=== PATIENT | male | born 1950 | race Caucasian/White ===

== ENCOUNTER → 2021-04-29 09:47 | Outpatient (BNVA) | payer MEDICARE, OTHER, SELFPAY | PROVIDERS: PCP Internal Medicine; Visit Provider Urology | DX: Z13.89 Encounter for screening for other disorder (principal) | CPT/HCPCS: 99212 ==

== ENCOUNTER → 2021-06-30 09:12 | Outpatient (BNVA) | payer MEDICARE, OTHER, SELFPAY | PROVIDERS: Visit Provider Urology | DX: N48.6 Induration penis plastica (principal) | CPT/HCPCS: 99212 ==

== ENCOUNTER → 2021-12-31 08:27 | Outpatient (BNVA) | payer MEDICARE, OTHER, SELFPAY | PROVIDERS: PCP Internal Medicine; Visit Provider Urology | DX: Z13.89 Encounter for screening for other disorder (principal) | CPT/HCPCS: Q3014 ==

== ENCOUNTER → 2022-07-06 08:14 | Outpatient (BNVA) | payer MEDICARE, OTHER, SELFPAY | PROVIDERS: PCP Internal Medicine; Visit Provider Urology | DX: N52.9 Male erectile dysfunction, unspecified (principal); N48.6 Induration penis plastica | CPT/HCPCS: 99212 ==

== ENCOUNTER → 2023-03-14 08:53 | Outpatient (BNVA) | payer MEDICARE, OTHER, SELFPAY | PROVIDERS: PCP Internal Medicine; Visit Provider Urology | DX: N48.6 Induration penis plastica (principal); N52.9 Male erectile dysfunction, unspecified; Z79.899 Other long term (current) drug therapy | CPT/HCPCS: 99212 ==

== ENCOUNTER 2023-09-14 08:24 | Outpatient (AMB) | payer MEDICARE, OTHER, SELFPAY ==
--- NOTE | 2023-09-14 08:28 | MHC.OFFVIS ---
Intake Intake Visit Reasons: 6m/Testo(Set) Intake Note: Patient is Present for Follow Up Urology Medication: Sildenafil, Tadalafil Antibiotic Allergies: None Blood Thinners: None Allergies No Known Allergies Allergy (Verified 09/14/23 08:30) Medication List - Last Reconciled 09/14/23 by Cali Guzman MD omeprazole 40 mg PO DAILY pentoxifylline ER 400 mg PO BID 90 days sildenafil 100 mg PO DAILY PRN 30 days tadalafil (Cialis) 10 mg PO DAILY HPI HPI Comments History of Present Illness Details Jonathon is a very pleasant male. He is a patient of Dr Luong. He is seen for the following urologic conditions. - Peyronie's disease - erectile dysfunction Continue good response with Peyronie's management Continue good response to daily tadalafil Testosterone check 545 no indication for replacement Discussed use of penile constriction band for venous leak Erectile dysfunction Response to daily tadalafil with on demand sildenafil Tadalafil dosage 20 mg daily 12/28 T 554 PSA 2.9, 08/28 T 525 Peyronie's Disease: Improved curvature with combination medical therapy [place] no longer uncomfortable for partner The patient presents for followup up evaluation for penile disorder, - reports dorsal left curvature. Primary complaint is penile curvature, to the left, dorsally. The problem has been present Ongoing. At this time he experiences fully rigid erections sufficient for penetrative intercourse. [place] has is possible but painful - uncomfortable for partner. Prior management includes - antioxidant plus vacuum device Associated conditions history of penile trauma No CAD No diabetes No erectile dysfunction No hypertension No peripheral vascular disease No Investigation results testosterone 08/27 550 PFSH Medical History Weak urinary stream Bladder outlet obstruction Peyronie's disease Surgical History H/O esophagectomy Review of Systems Const Denies chills and Denies fever(s) Card Reports no additional complaints and Denies syncope Resp Denies cough GI Denies abdominal pain and Denies heartburn Reports as per HPI and Denies change in libido Neuro Denies syncope Psych Denies change in libido Endo Denies change in libido Physical Exam Const General: cooperative, healthy appearing, comfortable and no acute distress Orientation/consciousness: patient oriented x3 HEENT Face and sinus: Yes normal facial exam Mouth: moist mucous membranes Neck Neck: Yes normal visual inspection, Yes full ROM and Yes trachea midline Chest Chest palpation & inspection: normal inspection of the chest Resp Effort & Inspection: normal respiratory effort, able to speak in complete sentences and no respiratory distress GI Inspection: Yes normal to inspection Back/Spine/Pelvis Cervical Spine: normal cervical lordosis Thoracic/Lumbar Spine: thoracic and lumbar spine normal to inspection Skin General skin exam: no rashes or lesions noted Neuro General: patient oriented x3, gait normal, tone normal and moves all extremities Extrem General: Yes normal to inspection and Yes capillary refill normal Assessment & Plan Assessment & Plan (1) Elevated PSA: Code(s): R97.20 - Elevated prostate specific antigen [PSA] (2) Erectile dysfunction: Code(s): N52.9 - Male erectile dysfunction, unspecified (3) Peyronie's disease: Code(s): N48.6 - Induration penis plastica Plan Twelve month follow-up Orders: Orders PSA,Total (Free>4and<10) 364 Days R97.20 - Elevated prostate specific antigen [PSA] Medications: Refilled pentoxifylline ER must administer with a meal/food 400 mg PO BID 90 days 180 tabs 1RF Patient Instructions: Imaging studies, laboratory and physical exam results were discussed and reviewed in detail. No major barriers to patient understanding were identified. An opportunity to ask questions regarding the treatment plan was provided. All questions were answered. The patient expressed understanding and agreement with the above treatment plan. The patient is aware they should contact our office by phone for worsening of their current condition or the appearance of new urologic symptoms. Compliance is encouraged with any medications and followup testing that is ordered. It is a privilege to participate in the urologic care of your patient. If you have any questions or concerns regarding treatment for the above conditions, or other urologic issues, please do not hesitate to contact me. The office telephone contact is [phone]. This note is constructed using voice recognition software. While every effort has been made to ensure accuracy pile driving setter errors may have been included. Yours sincerely, Dr Cali Guzman MD, [facility] - Urology Providers of Expert, Compassionate Care for the Genitourinary System Coding Level of Care Code Est Pt Level 4 (41668) Diagnoses Elevated PSA R97.20 Erectile dysfunction N52.9 Peyronie's disease N48.6
== END 2023-09-14 08:51 | disposition home or self-care (01) ==
PROVIDERS: Visit Provider Urology
DX: R97.20 Elevated prostate specific antigen [PSA] (principal); N52.9 Male erectile dysfunction, unspecified; N48.6 Induration penis plastica
CPT/HCPCS: 99214

== ENCOUNTER → 2023-09-14 08:24 | Outpatient (BNVA) | payer MEDICARE, OTHER, SELFPAY | PROVIDERS: Visit Provider Urology | DX: N48.6 Induration penis plastica (principal); N52.9 Male erectile dysfunction, unspecified; R97.20 Elevated prostate specific antigen [PSA] | CPT/HCPCS: 99212 ==

== ENCOUNTER 2024-09-17 08:14 | Outpatient (AMB) | payer MEDICARE, OTHER, SELFPAY ==
--- NOTE | 2024-09-17 08:23 | A.OFFVIS_ITS ---
Intake Visit Reasons: PSA Follow up(Done at DC) Intake Note: Patient is present for PSA Follow up Urology Med: Pentoxifylline, Tadalafil, Sildenafil Antibiotic Allergy: None Blood Thinner: None PSA- 08/21/24- 3.28 Hemoglobin A1C: 08/21/24 5.7 Community Center Worker Required: No Accompanied by: Self / Same As Patient Allergies No Known Allergies Allergy (Verified 09/17/24 08:29) HPI Comments Details: Jonathon is a very pleasant male. He is a patient of Dr Luong. He is seen for the following urologic conditions. - Peyronie's disease - erectile dysfunction Continue good response with Peyronie's management Taking tadalafil 10 mg daily with good effect on urination May add 100 mg sildenafil on demand Testosterone check 545 no indication for replacement Discussed use of penile constriction band for venous leak - information provided Erectile dysfunction Response to daily tadalafil with on demand sildenafil Tadalafil dosage 20 mg daily 12/28 T 554 PSA 2.9, 08/28 T 525, 08/29 PSA 3.2 Peyronie's Disease: Improved curvature with combination medical therapy [place] no longer uncomfortable for partner The patient presents for followup up evaluation for penile disorder, - reports dorsal left curvature. Primary complaint is penile curvature, to the left, dorsally. The problem has been present Ongoing. At this time he experiences fully rigid erections sufficient for penetrative intercourse. [place] has is possible but painful - uncomfortable for partner. Prior management includes - antioxidant plus vacuum device Associated conditions history of penile trauma No CAD No diabetes No erectile dysfunction No hypertension No peripheral vascular disease No Investigation results testosterone 08/27 550 PFSH Medical History Weak urinary stream Bladder outlet obstruction Peyronie's disease Surgical History H/O esophagectomy Review of Systems Const Denies chills and Denies fever(s) Card Reports no additional complaints and Denies syncope Resp Denies cough GI Denies abdominal pain and Denies heartburn Reports as per HPI and Denies change in libido Neuro Denies syncope Psych Denies change in libido Endo Denies change in libido Physical Exam Const General: cooperative, healthy appearing, comfortable and no acute distress Orientation/consciousness: patient oriented x3 HEENT Face and sinus: Yes normal facial exam Mouth: moist mucous membranes Neck Neck: Yes normal visual inspection, Yes full ROM and Yes trachea midline Chest Chest palpation & inspection: normal inspection of the chest Resp Effort & Inspection: normal respiratory effort, able to speak in complete sentences and no respiratory distress GI Inspection: Yes normal to inspection Back/Spine/Pelvis Cervical Spine: normal cervical lordosis Thoracic/Lumbar Spine: thoracic and lumbar spine normal to inspection Skin General skin exam: no rashes or lesions noted Neuro General: patient oriented x3, gait normal, tone normal and moves all extremities Extrem General: Yes normal to inspection and Yes capillary refill normal Assessment & Plan Assessment & Plan (1) Peyronie's disease: Code(s): N48.6 - Induration penis plastica Category: Medical (2) Erectile dysfunction: Code(s): N52.9 - Male erectile dysfunction, unspecified Category: Medical (3) Elevated PSA: Code(s): R97.20 - Elevated prostate specific antigen [PSA] Category: Medical Plan Twelve month follow-up Medications: Refilled sildenafil administer 60 minutes before intended activity 100 mg PO DAILY 30 days PRN 30 tabs 1RF sexual activity N52.9 - Male erectile dysfunction, unspecified Patient Instructions: Imaging studies, laboratory and physical exam results were discussed and reviewed in detail. No major barriers to patient understanding were identified. An opportunity to ask questions regarding the treatment plan was provided. All questions were answered. The patient expressed understanding and agreement with the above treatment plan. The patient is aware they should contact our office by phone for worsening of their current condition or the appearance of new urologic symptoms. Compliance is encouraged with any medications and followup testing that is ordered. It is a privilege to participate in the urologic care of your patient. If you have any questions or concerns regarding treatment for the above conditions, or other urologic issues, please do not hesitate to contact me. The office telephone contact is [phone]. This note is constructed using voice recognition software. While every effort has been made to ensure accuracy registered account administrator errors may have been included. Yours sincerely, Dr Cali Guzman MD, [facility] - Urology Providers of Expert, Compassionate Care for the Genitourinary System Coding Level of Care Code Est Pt Level 4 (56785) Diagnoses Peyronie's disease N48.6 Erectile dysfunction N52.9 Elevated PSA R97.20
== END 2024-09-17 09:06 | disposition home or self-care (01) ==
LOC: HO.HUSH 08:14
PROVIDERS: PCP Internal Medicine; Visit Provider Urology
DX: N48.6 Induration penis plastica (principal); N52.9 Male erectile dysfunction, unspecified; R97.20 Elevated prostate specific antigen [PSA]
CPT/HCPCS: 99214

== ENCOUNTER → 2024-09-17 08:14 | Outpatient (BNVA) | payer MEDICARE, OTHER, SELFPAY | PROVIDERS: PCP Internal Medicine; Visit Provider Urology | DX: N48.6 Induration penis plastica (principal); N52.9 Male erectile dysfunction, unspecified; R97.20 Elevated prostate specific antigen [PSA] | CPT/HCPCS: 99212 ==

== ENCOUNTER 2025-09-17 08:00 | Outpatient (AMB) | payer MEDICARE, OTHER, SELFPAY ==
--- NOTE | 2025-09-17 08:02 | MHC.OFFVIS ---
Intake Visit Reasons: 1Y follow Up Intake Note: Patient is present for Yearly Follow up Urology Med: pentoxifylline, Tadalafil, Sildenafil Antibiotic Allergy: None Blood Thinner: None Patient states that [facility] States that he has copy Sql Database Programmer Required: No Accompanied by: self Allergies No Known Allergies Allergy (Verified 09/17/25 08:07) HPI Comments Details: Jonathon is a very pleasant male. He is a patient of Dr Luong. He is seen for the following urologic conditions. - Peyronie's disease - erectile dysfunction Twelve month follow-up Using tadalafil 10 mg daily with on demand sildenafil Continue good response with Peyronie's management Use of constriction band is helpful Recently got indoor bike for exercise Prior Testosterone check 545 no indication for replacement Erectile dysfunction Response to daily tadalafil with on demand sildenafil Tadalafil dosage 20 mg daily 12/28 T 554 PSA 2.9, 08/28 T 525, 08/29 PSA 3.2 Peyronie's Disease: Improved curvature with combination medical therapy [place] no longer uncomfortable for partner The patient presents for followup up evaluation for penile disorder, - reports dorsal left curvature. Primary complaint is penile curvature, to the left, dorsally. The problem has been present Ongoing. At this time he experiences fully rigid erections sufficient for penetrative intercourse. [place] has is possible but painful - uncomfortable for partner. Prior management includes - antioxidant plus vacuum device Associated conditions history of penile trauma No CAD No diabetes No erectile dysfunction No hypertension No peripheral vascular disease No Investigation results testosterone 08/27 550 PFSH Medical History Weak urinary stream Bladder outlet obstruction Peyronie's disease Surgical History H/O esophagectomy Review of Systems Const Denies chills and Denies fever(s) Card Reports no additional complaints and Denies syncope Resp Denies cough GI Denies abdominal pain and Denies heartburn Reports as per HPI and Denies change in libido Neuro Denies syncope Psych Denies change in libido Endo Denies change in libido Physical Exam Const General: cooperative, healthy appearing, comfortable and no acute distress Orientation/consciousness: patient oriented x3 HEENT Face and sinus: Yes normal facial exam Mouth: moist mucous membranes Neck Neck: Yes normal visual inspection, Yes full ROM and Yes trachea midline Chest Chest palpation & inspection: normal inspection of the chest Resp Effort & Inspection: normal respiratory effort, able to speak in complete sentences and no respiratory distress GI Inspection: Yes normal to inspection Back/Spine/Pelvis Cervical Spine: normal cervical lordosis Thoracic/Lumbar Spine: thoracic and lumbar spine normal to inspection Skin General skin exam: no rashes or lesions noted Neuro General: patient oriented x3, gait normal, tone normal and moves all extremities Extrem General: Yes normal to inspection and Yes capillary refill normal Assessment & Plan Assessment & Plan (1) Peyronie's disease: Code(s): N48.6 - Induration penis plastica Category: Medical (2) Erectile dysfunction: Code(s): N52.9 - Male erectile dysfunction, unspecified Category: Medical (3) Elevated PSA: Code(s): R97.20 - Elevated prostate specific antigen [PSA] Category: Medical Plan Twelve month follow-up Patient Instructions: This note is constructed using voice recognition software. While every effort has been made to ensure accuracy paint trimmer pipe bowls errors may have been included. Imaging studies, laboratory and physical exam results were discussed and reviewed in detail. No major barriers to patient understanding were identified. An opportunity to ask questions regarding the treatment plan was provided. All questions were answered. The patient expressed understanding and agreement with the above treatment plan. The patient is aware they should contact our office by phone for worsening of their current condition or the appearance of new urologic symptoms. Compliance is encouraged with any medications and followup testing that is ordered. It is a privilege to participate in the urologic care of your patient. If you have any questions or concerns regarding treatment for the above conditions, or other urologic issues, please do not hesitate to contact me. The office telephone contact is [phone]. Sincerely, Dr Cali Guzman MD, [facility] - Urology Compassionate Specialist Care for the Genitourinary System Coding Level of Care Code Est Pt Level 4 (94697) Complex EM visit Add On G2211 Diagnoses Peyronie's disease N48.6 Erectile dysfunction N52.9 Elevated PSA R97.20
--- OUTSIDE RECORDS SUMMARY | 2025-09-17 08:02 | XMS_ITS | Encounter Summary ---
Author Organization [facility] Address [address] [place] [address] [place] [address] Phone Care Team Providers Care Hand Outside Cutter Name Role Phone Marco Bennett DO Primary Care Provider [phone] Encounter Details Date Type Department Care Team (Late st Contact Info) Description 02/13/2019 Prep for Surgery [facility] [address] [facility], [address] [place] [address] Emerita Ariza PA [address] [place] [address] 5[address] [place] [address] Social History Tobacco Use Types Packs/Day Years Used Date Smoking Tobacco: Former Cigarettes 1 10 1 11/15/1975 - 09/15/1986 Smokeless Tobacco: Never Alcohol Use Standard Drinks/Week Comments Yes 2 (1 standard drink = 0.6 oz pur e alcohol) Sex and Gender Information Value Date Recorded Sex Assigned at Not on file Legal Sex Male 5:45 PM EST Gender Identity Not on file Sexual Orientation Not on file documented as of this encounter Plan of Treatment Not on file documented as of this encounter Visit Diagnoses Not on filedocumented in this encounter Care Teams Hand Outside Cutter Relationship Specialty Start Date End Date Marco Bennett DO [address] [place] [address] [address] [place] [address] PCP - General Internal Medicine 12/27/18 documented as of this encounter Additional Source Comments The information contained in this document represents components of the legal health record. It is not the complete legal health record.[facility]
--- OUTSIDE RECORDS SUMMARY | 2025-09-17 08:02 | XMS_ITS | Encounter Summary ---
Author Organization [facility] Address [address] [facility] [address] [place] [address] Phone Care Team Providers Care Air Battle Manager Name Role Phone Marco Bennett DO Primary Care Provider [phone] Encounter Details Date Type Department Care Team (Late st Contact Info) Description 02/27/2019 Procedure Pass [facility] [address] [place] [address] Social History Tobacco Use Types Packs/Day Years [...] on filedocumented in this encounter Care Teams Air Battle Manager Relationship Specialty Start Date End Date Marco Bennett DO [address] [place] [address] [address] [place] [address] PCP - General Internal Medicine 12/27/18 documented as of this encounter Additional Source Comments The information contained in this document represents components of the legal health record. It is not the complete legal health record.[facility]
--- OUTSIDE RECORDS SUMMARY | 2025-09-17 08:02 | XMS_ITS | Encounter Summary ---
Author Organization [facility] Address [address] [place] [address] [place] [address] Phone Care Team Providers Care Turn Down Worker Name Role Phone Rick Pruett MD Primary Care Provider [phone] Marco Bennett DO Primary Care Provider [phone] Encounter Details Date Type Department Care Team (Late st Contact Info) Description 12/21/[address] [facility]PT [address] [place] [address] Social History Tobacco Use Types Packs/Day Years [...] on filedocumented in this encounter Care Teams Turn Down Worker Relationship Specialty Start Date End Date Rick Pruett MD [address] [place] [address] PCP - General Internal Medicine 08/24/16 12/26/18 Marco Bennett DO [address] [place] [address] PCP - General Internal Medicine 12/27/18 documented as of this encounter Additional Source Comments The information contained in this document represents components of the legal health record. It is not the complete legal health record.[facility]
--- OUTSIDE RECORDS SUMMARY | 2025-09-17 08:02 | XMS_ITS | Encounter Summary ---
Author Organization [facility] Address [address] [place] [address] Phone Care Team Providers Care Fulling Mill Operator Name Role Phone Rick Pruett MD Primary Care Provider [phone] Marco Bennett DO Primary Care Provider [phone] Encounter Details Date Type Department Care Team (Late st Contact Info) Description 12/08/2016 Transcribe Orders [facility] Lab Main [address] [place] [address] Rick Pruett MD [address] [place] [address] Social History Tobacco Use Types Packs/Day Years [...] on filedocumented in this encounter Care Teams Fulling Mill Operator Relationship Specialty Start Date End Date Rick Pruett MD [address] [place] [address] PCP - General Internal Medicine 08/24/16 12/26/18 Marco Bennett DO [address] [place] [address] [address] [place] [address] PCP - General Internal Medicine 12/27/18 documented as of this encounter Additional Source Comments The information contained in this document represents components of the legal health record. It is not the complete legal health record.[facility]
--- OUTSIDE RECORDS SUMMARY | 2025-09-17 08:02 | XMS_ITS | Encounter Summary ---
Author Organization [facility] Address [address] [place] [address] Phone Care Team Providers Care Brewery Technician Name Role Phone Rick Pruett MD Primary Care Provider [phone] Marco Bennett DO Primary Care Provider [phone] Reason for Visit * Reason Onset Date Comments Post Discharge Follow Up Call 12/23/2016 Encounter Details Date Type Department Care Team (Late st Contact Info) Description 12/23/2016 Telephone [facility] [address] [place] [id number] Emi Bates RN [address] [place] [address] [email or web address] Post Discharge Follow Up Call Social History Tobacco Use Types Packs/Day Years [...] on filedocumented in this encounter Care Teams Brewery Technician Relationship Specialty Start Date End Date Rick Pruett MD [address] [place] [address] PCP - General Internal Medicine 08/24/16 12/26/18 Marco Bennett DO [address] [place] [address] [address] [place] [address] PCP - General Internal Medicine 12/27/18 documented as of this encounter Additional Source Comments The information contained in this document represents components of the legal health record. It is not the complete legal health record.[facility]
--- OUTSIDE RECORDS SUMMARY | 2025-09-17 08:03 | XMS_ITS | Encounter Summary ---
Author Organization [facility] Address [address] [place] [address] Phone Care Team Providers Care Stacker Operator Name Role Phone Rick Pruett MD Primary Care Provider [phone] Marco Bennett DO Primary Care Provider [phone] Encounter Details Date Type Department Care Team (Late st Contact Info) Description 09/27/2016 Procedure Pass [facility] [address] [place] [phone] Social History Tobacco Use Types Packs/Day Years Used Date Smoking Tobacco: Former Cigarettes 1 10 1 11/15/1975 - 09/15/1986 Smokeless Tobacco: Never Alcohol Use Standard Drinks/Week Comments Yes 0 (1 standard drink = 0.6 oz pur e alcohol) occ Sex and Gender Information Value Date Recorded Sex Assigned at Not on file Legal Sex Male 5:45 PM EST Gender Identity Not on file Sexual Orientation Not on file documented as of this encounter Plan of Treatment Not on file documented as of this encounter Visit Diagnoses Not on filedocumented in this encounter Care Teams Stacker Operator Relationship Specialty Start Date End Date Rick Pruett MD [address] [place] [address] PCP - General Internal Medicine 08/24/16 12/26/18 Marco Bennett DO [address] [place] [address] [address] [place] [address] PCP - General Internal Medicine 12/27/18 documented as of this encounter Additional Source Comments The information contained in this document represents components of the legal health record. It is not the complete legal health record.[facility]
--- OUTSIDE RECORDS SUMMARY | 2025-09-17 08:03 | XMS_ITS | Clinical Summary ---
Author Organization [facility] Address [address] [place] [id number] Phone Care Team Providers Care Biomedical Field Service Engineer Name Role Phone FrandyMarco kim Primary Care Provider [phone] Allergies Active Allergy Reactions Criticality Noted Date Comments Aspirin Hives,Shortness Of Breath,Other (See Comments) High 12/24/2003 Hives , Ok to have ketorolac in total joint mix per MD Kowalski Iodinated Contrast Media Hives,Shortness Of Breath,Other (See Comments) High 12/24/2003 Hives Other Hives High 03/04/2017 Food coloring - yellow 5 Pantoprazole Hives,Other (See Comments) High 12/24/2003 Hives Medications acetaminophen (TYLENOL) 325 mg tablet Take 650 mg by mouth every 4 (four) hours as needed. PRN epigastric pain 12/24/19 04 Active therapeutic multivitamin tablet Take 1 tablet by mouth daily. Reported on 12/21/2016 Active calcium carbonate-vitami n D3 1,250 mg (500 mg elemental)-400 units per tablet Take 1 tablet by mouth daily. Reported on 12/21/2016 Active cholecalciferol (VITAMIN D3) 2,000 unit capsule Take 2,000 Units by mouth daily. Reported on 12/21/2016 Active KRILL/OM3/DHA/EP A/OM6/LIP/ASTX (KRILL OIL, OMEGA 3 AND 6, ORAL) Take 1 capsule by mouth daily. Reported on 12/21/2016 Active ascorbic acid, vitamin C, (VITAMIN C) 500 MG tablet Take 500 mg by mouth daily. Reported on 12/21/2016 Active coenzyme Q10 100 mg capsule Take 100 mg by mouth daily. Reported on 12/21/2016 Active woqmabrb-ryvzi-k yalu-CF borate (MOVE FREE [employer]) 750 mg-100 mg- 1.65 mg-108 mg Tab Take 1 tablet by mouth daily. Reported on 12/21/2016 Active ALPRAZolam (XANAX) 1 MG tablet Take 0.5-1 tablets (0.5-1 mg total) by mouth nightly as needed for anxiety. Do not drive 1 tablet 12/12/19 17 Active amoxicillin (AMOXIL) 500 MG capsule Take 1 capsule (500 mg total) by mouth as directed. Take 4 pills 30-60 minutes prior to dental work. 12 capsule 3 06/13/20 17 Active turmeric (CURCUMIN MISC) 1 tablet by Miscellaneous route daily. Active omeprazole (PRILOSEC) 40 MG capsule Take 40 mg by mouth daily. Active oxyCODONE 5 MG immediate release tablet Take 1-2 tablets (5-10 mg total) by mouth every 4 (four) hours as needed for moderate pain. Partial fill ok. For acute postop pain.Taper pain medications as you are able over the next week by either increasing the time between doses and/or decreasing the number of pills taken at one time. Call MD if you have persistent severe pain requiring a refill or need help to taper your meds. Earliest Fill Date: 02/28/19 20 tablet 02/29/20 Active Additional Information Patient not taking.Reported on 03/30/2021 polyethylene glycol (MIRALAX) 17 gram packet Take 17 g by mouth 2 (two) times a day as needed (severe constipation). 02/29/20 Active Additional Information Patient not taking.Reported on 03/30/2021 senna (SENOKOT) 8.6 mg tablet Take 2 tablets by mouth 2 (two) times a day as needed. 02/29/20 Active Additional Information Patient not taking.Reported on 03/30/2021 arginine (I-ZOXJZRUE-825) 500 mg tablet Take 1,000 mg by mouth daily. Active papaverine-phent olamine-alprosta dil (TRIMIX 05/12/09) 30 mg-1 mg-10 mcg/mL injectionIndicat ions:Peyronie's disease,Erectile dysfunction, unspecified erectile dysfunction type Bring medication to penile duplex ultrasound in office for dosing 5 mL 03/30/20 21 Active Active Problems Problem Noted Date Diagnosed Date Osteoarthritis of right hip 02/27/2019 GERD (gastroesophageal reflux disease) 9 Status post total replacement of left hip 2017 Primary osteoarthritis of left hip 12/21/2016 Osteoarthritis of left hip 12/21/2016 Malignant neoplasm of esophagus 12/24/2003 Overview (12/27/2014): Esophageal cancer Immunizations Immunization Administration Dates Next Due Pneumococcal conjugate PCV13 02/28/2019(Deferred : Patient Refused) Family History Medical History Relation Comments CABG Father Relation Status Comments Father Social History Tobacco Use Types Packs/Day Years Used Date Smoking Tobacco: Former Cigarettes 1 10 1 11/15/1975 - 09/15/1986 Smokeless Tobacco: Never Tobacco Cessation:Counseling Given: Not Answered Alcohol Use Standard Drinks/Week Comments Yes 2 (1 standard drink = 0.6 oz pur e alcohol) Education Answer Date Recorded Are you interested in more education? Not on andrew e 03/19/2023 Are you concerned about learning? Not on file 03/19/2023 No 03/19/2023 No 03/19/2023 Digital Access Answer Date Recorded No 04/02/2023 No 04/02/2023 Reliable internet access at home? Not on file 04/02/2023 Device with a working camera? Not on file Sex and Gender Information Value Date Recorded Sex Assigned at Not on file Legal Sex Male 5:45 PM EST Gender Identity Not on file Sexual Orientation Not on file Last Filed Vital Signs Vital Sign Reading Time Taken Comments Blood Pressure 148/79 10/04/2022 11:06 AM EST Pulse 92 10/04/2022 11:06 AM EST Temperature 37.4 C (99.3 F) 02/28/2019 10:52 AM EDT Respiratory Rate 17 02/28/2019 10:52 AM EDT Oxygen Saturation 97% 10/04/2022 11:06 AM EST Inhaled Oxygen Concentration - - Weight 90.7 kg (200 lb) 02/27/2019 3:46 PM EDT Height 185.4 cm (6' 1 ) 02/27/2019 3:46 PM EDT Body Mass Index 26.39 02/27/2019 3:46 PM EDT Plan of Treatment Health Maintenance Due Date Last Done Comments LIPID PANEL 1949 DEPRESSION SCREENING 1961 SMOKING Hx and SMOKELESS TOBACCO SCREENING 1962 HEPATITIS C SCREENING 1967 PNEUMOCOCCAL VACCINES (50+ years) (1 of 2 - PCV) 1968 ZOSTER VACCINES (1 of 2) 1968 RSV VACCINE (1 - 1-dose 75+ series) 2024 INFLUENZA VACCINE (#1) 2025 , 09/29/2019, 08/06/2019 COVID-19 VACCINE (2 - 2024-2 6 season) 2025 03/24/2021 Adult Td,Tdap Booster 09/29/2029 09/29/2019 HEPATITIS A VACCINES Aged Out No long er eligible based on patient's age to complete this topic HIB VACCINES Aged Out No longer eligi ble based on patient's age to complete this topic IPV VACCINES Aged Out No longer eligi ble based on patient's age to complete this topic MENINGOCOCCAL VACCINES (ACWY) Aged Out No longer eligible based on patient's age to complete this topic MENINGOCOCCAL VACCINES (B) Aged Out N o longer eligible based on patient's age to complete this topic Medical Devices Implanted Type Area Inspector Raw Quartz Device Identifier Shelf Expiration Date Model / Serial / Lot Wires Chest Wall G[employer] Acet Shell 56f Hip 06 Ea - [id number] Implanted:Qty: 1 on 12/21/2016 by Catalino Kowalski MD at [facility] Left: Hip [employer] 10/14/2026 [id number] / / [id number] Neutral E1 Liner 36mm F Hip 11 Ea - [id number] Implanted:Qty: 1 on 12/21/2016 by Catalino Kowalski MD at [facility] Left: Hip [employer] 10/14/2021 [id number] / / [id number] Tprlc 133 Mp Rdcd Distal Type1 Pps Ho 16.0 Hip [id number] Implanted:Qty: 1 on 12/21/2016 by Catalino Kowalski MD at [facility] Left: Hip [employer] 09/18/2026 [id number] / / [id number] Hip Head Femoral Ceramic Bioloxd Mod 36mm -3 Nk Hip 04 - [id number] Implanted:Qty: 1 on 12/21/2016 by Catalino Kowalski MD at [facility] Left: Hip [employer] 09/26/2026 [id number] / / [id number] Acetabular Shell 56mm Size Kk Continuum Tivanium Trabecular Metal Hemisphere Cluster Hole - [id number] Implanted:Qty: 1 on 02/27/2019 by Catalino Kowalski MD at [facility] Right: Acetabulum [employer]EL[email or web address] 01/03/2029 [id number] / / [id number] Description:The implant type , laterality (when applicable), size, and expiration date have been visually and verbally confirmed by the Surgeon, Circulating RN and Scrub Personnel. Acetabular Liner [id number] Size Kk Longevity Highly Crosslinked Polyethylene Neutral - [id number] Implanted:Qty: 1 on 02/27/2019 by Catalino Kowalski MD at [facility] Right: Acetabulum [email or web address] 08/05/2023 [id number] / / [id number] Description:The implant type , laterality (when applicable), size, and expiration date have been visually and verbally confirmed by the Surgeon, Circulating RN and Scrub Personnel. Hip Stem [id number] Tprlc 133 Mp Rdcd Distal Type1 Pps Ho 16.0 01 - [id number] Implanted:Qty: 1 on 02/27/2019 by Catalino Kowalski MD at [facility] Right: Acetabulum [employer] 09/01/2028 [id number] / / [id number] Description:The implant type , laterality (when applicable), size, and expiration date have been visually and verbally confirmed by the Surgeon, Circulating RN and Scrub Personnel. Hip 3mm 36 Biolox Delta Ceramic Modular Minus - [id number] Implanted:Qty: 1 on 02/27/2019 by Catalino Kowalski MD at [facility] Right: Acetabulum [employer] 11/19/2028 [id number] / / [id number] Description:The implant type , laterality (when applicable), size, and expiration date have been visually and verbally confirmed by the Surgeon, Circulating RN and Scrub Personnel. Insurance MEDICARE PART A & B MEDICARE PART A & [place] [address] [place] [address] [employer] MEDICARE SUPPLEMENT MEDICARE PART A & B [employer] MEDICARE SUPPLEMENT MEDICARE PART A & B [employer] MEDICARE SUPPLEMENT MEDICARE PART A & B [facility] MEDICARE SUPPLEMENT MEDICARE PART A & [place] [address] [address] [address] MEDICARE SUPPLEMENT MEDICARE PART A & B [facility] MEDICARE SUPPLEMENT MEDICARE PART A & B [employer] MEDICARE SUPPLEMENT MEDICARE PART A & B [employer] MEDICARE SUPPLEMENT MEDICARE PART A & B [facility] [employer] MEDICARE SUPPLEMENT Advance Directives For more information, please contact: [phone] (9AM - 5PM [facility], Monday-Monday) * Full Code (Presumed) (Latest Code Status on File) Date Activated Date Inactivated Comments 02/27/2019 3:41 PM 02/28/2019 3:24 PM * Full Code (Presumed) Date Activated Date Inactivated Comments 02/27/2019 11:19 AM 02/27/2019 3:40 PM * Full Code (Presumed) Date Activated Date Inactivated Comments 12/21/2016 2:01 PM 12/22/2016 4:00 PM * Full Code (Presumed) Date Activated Date Inactivated Comments 12/21/2016 8:51 AM 12/21/2016 2:01 PM * Full Code (Presumed) Date Activated Date Inactivated Comments 09/27/2016 7:33 AM 09/27/2016 1:28 PM Care Teams Biomedical Field Service Engineer Relationship Specialty Start Date End Date Marco Bennett DO [address] [place] [address] [address] [place] [address] PCP - General Internal Medicine 12/27/18 Additional Source Comments The information contained in this document represents components of the legal health record. It is not the complete legal health record.[facility]
== END 2025-09-17 08:52 | disposition home or self-care (01) ==
LOC: HO.HUSH 08:00
PROVIDERS: PCP Internal Medicine; Visit Provider Urology
DX: N48.6 Induration penis plastica (principal); N52.9 Male erectile dysfunction, unspecified; R97.20 Elevated prostate specific antigen [PSA]
CPT/HCPCS: 99214; G2211

== ENCOUNTER → 2025-09-17 08:00 | Outpatient (BNVA) | payer MEDICARE, OTHER, SELFPAY | PROVIDERS: PCP Internal Medicine; Visit Provider Urology | DX: R97.20 Elevated prostate specific antigen [PSA] (principal); N48.6 Induration penis plastica; N52.9 Male erectile dysfunction, unspecified | CPT/HCPCS: 99212 ==